=== PATIENT | male | born 1975 | race Caucasian/White ===

== ENCOUNTER 2018-04-12 10:42 | Emergency (ER) | payer BC ==
--- NOTE | 2018-04-12 11:20 | EDM.PDOC ---
ED HPI GENERAL MEDICAL PROBLEM - General Chief Complaint: Chest Pain Stated Complaint: CHEST PAIN Time Seen by Provider: 04/12/18 10:44 Source of Information: Reports: Patient History Limitations: Reports: No Limitations - History of Present Illness INITIAL COMMENTS - FREE TEXT/NARRATIVE: 42-year-old male history of hypertension presenting with a chief complaint of chest pain. Patient states that on Tuesday while driving he had very brief episodes of left-sided sharp chest pain that was nonpleuritic in nature. Patient denies any associated cough. Patient states that his father had angioplasty performed he thinks in his late 40s or early 50s. Patient has no history of MO or ACS himself. Patient takes lisinopril 20 mg for high blood pressure. He purchased a home blood pressure monitor recently been checking it has been as high as 180/105. During these episodes patient has been asymptomatic. Patient can't describe any palliating or provoking factors. He's tried nothing at home to the pain. Describes it as general funny feeling on the left side of his chest mild pain 1 out of 10 associated with some radiation to his left arm. No associated shortness of breath. Patient did recently fly out here 1 week ago has had no unilateral leg swelling. No history of DVT or PE no history of cancer. Patient denies any associated shortness of breath with chest pain. He primarily present today because of the intermittent. Nature of the pain he's had since Tuesday. Of note the patient did have similar episodes of pain when he is approximately 36 years old and had an exercise stress test which he was told was normal. This was done back in [place]. Onset: Other Onset Date: 04/09/18 Duration: Intermittent Location: Reports: Chest Quality: Reports: Sharp Severity: Mild Improves with: Reports: None Worsens with: Reports: None Associated Symptoms: Reports: Cough Chest Pain Score (Numeric/FACES): 2 - Related Data Allergies Allergy/AdvReac Type Severity Reaction Status Date / Time No Known Allergies Allergy Verified 04/12/18 12:35 Home Meds: Home Meds Lisinopril 20 mg PO DAILY 04/12/18 [History] Past Medical History Cardiovascular History: Reports: Hypertension - Past Surgical History GI Surgical History: Reports: Cholecystectomy Social & Family History - Family History Cardiac: Reports: Hypertension, Stent - Tobacco Use Smoking Status *Q: Never Smoker - Caffeine Use Caffeine Use: Reports: Soda, Tea Other Caffeine Use: soda rarely - Recreational Drug Use Recreational Drug Use: No ED ROS GENERAL - Review of Systems Review Of Systems: See Below Constitutional: Reports: No Symptoms HEENT: Reports: No Symptoms Respiratory: Reports: Cough Cardiovascular: Reports: Chest Pain (Left-sided intermittent) Endocrine: Reports: No Symptoms GI/Abdominal: Reports: No Symptoms : Reports: No Symptoms Musculoskeletal: Reports: No Symptoms Skin: Reports: No Symptoms Neurological: Reports: No Symptoms Psychiatric: Reports: No Symptoms Hematologic/Lymphatic: Reports: No Symptoms Immunologic: Reports: No Symptoms ED EXAM, GENERAL - Physical Exam Exam: See Below Exam Limited By: No Limitations General Appearance: Alert, No Apparent Distress Nose: No Blood Throat/Mouth: No Airway Compromise Head: Atraumatic, Normocephalic Neck: Normal Inspection, Full Range of Motion Respiratory/Chest: No Respiratory Distress, Lungs Clear, Normal Breath Sounds, No Accessory Muscle Use, Chest Non-Tender Cardiovascular: Normal Peripheral Pulses, Regular Rate, Rhythm, No Edema, No Gallop, No JVD, No Murmur, No Rub GI/Abdominal: Soft, Non-Tender, No Distention Extremities: Normal Inspection, Normal Range of Motion, No Pedal Edema Neurological: Alert, Oriented, CN II-XII Intact, No Motor/Sensory Deficits Psychiatric: Normal Affect, Normal Mood Skin Exam: Warm, Dry, Intact EKG INTERPRETATION EKG Date: 04/12/18 Time: 10:49 Rhythm: NSR Rate (Beats/Min): 59 [place]: Normal P-Wave: Present QRS: Normal ST-T: Normal QT: Normal ME/PQ Interval: 134 Comparison: NA - No Prior EKG EKG Interpretation Comments: EKG is normal sinus rhythm with a ventricular rate of 59. No ST or T-wave abnormalities isindicative of ischemia. Course - Vital Signs Last Recorded V/S: Last Vital Signs Temp 37.2 C 04/12/18 10:54 Pulse 61 04/12/18 10:54 Resp 18 04/12/18 10:54 BP 166/96 H 04/12/18 10:54 Pulse Ox 100 04/12/18 10:54 - Orders/Labs/Meds Orders: Active Orders 24 hr Category Date Time Status Cardiac Monitoring [RC] . DIRECTED Care 04/12/18 11:14 Active CXR [Chest 1V Frontal] [CR] Stat Exams 04/12/18 11:15 Taken Labs: Laboratory Tests 04/12/18 04/12/18 Range/Units 10:55 10:55 WBC 6.98 (4.23-9.07) K/mm3 RBC 5.94 (4.63-6.08) M/mm3 Hgb 17.2 (13.7-17.5) gm/L Hct 48.7 (40.1-51.0) % MCV 82.0 (79.0-92.2) fl MCH 29.0 (25.7-32.2) pg MCHC 35.3 (32.2-35.5) g/dl RDW Std Deviation 39.0 (35.1-43.9) fL Plt Count 257 (163-337) K/mm3 MPV 10.2 (9.4-12.3) fl Neut % (Auto) 50.9 (34.0-67.9) % Lymph % (Auto) 39.0 (21.8-53.1) % Jenkins % (Auto) 7.3 (5.3-12.2) % Eos % (Auto) 2.1 (0.8-7.0) Baso % (Auto) 0.4 (0.1-1.2) % Neut # (Auto) 3.55 (1.78-5.38) K/mm3 Lymph # (Auto) 2.72 (1.32-3.57) K/mm3 Jenkins # (Auto) 0.51 (0.30-0.82) K/mm3 Eos # (Auto) 0.15 (0.04-0.54) K/mm3 Baso # (Auto) 0.03 (0.01-0.08) K/mm3 Sodium 138 (136-145) mEq/L Potassium 4.1 (3.5-5.1) mEq/L Chloride 103 (98-107) mEq/L Carbon Dioxide 28 (21-32) mEq/L Anion Gap 11.1 (5-15) BUN 13 (7-18) mg/dL Creatinine 1.1 (0.7-1.3) mg/dL Est Cr Clr Drug Dosing 86.36 mL/min Estimated GFR (MDRD) > 60 (>60) mL/min BUN/Creatinine Ratio 11.8 L (14-18) Glucose 94 (74-106) mg/dL Calcium 9.3 (8.5-10.1) mg/dL Total Bilirubin 1.0 (0.2-1.0) mg/dL AST 133 H (15-37) U/L ALT 296 H (16-63) U/L Alkaline Phosphatase 84 (46-116) U/L CK-MB (CK-2) < 0.5 (0-3.6) ng/ml Troponin I < 0.017 (0.00-0.056) ng/mL Total Protein 8.1 (6.4-8.2) g/dl Albumin 4.5 (3.4-5.0) g/dl Globulin 3.6 gm/dL Albumin/Globulin Ratio 1.3 (1-2) - Re-Assessments/Exams Free Text/Narrative Re-Assessment/Exam: 04/12/18 23:40 Pleurisy, costochondritis, highly unlikely pulmonary embolism or ACS Patient is a 42-year-old male presenting with a chief complaint of chest pain. Upon initial evaluation patient was noted to be hypertensive but not in the emergency range. On my initial physical exam patient appeared to be in no apparent physical distress. Heart and lung exams are normal. Patient also has heart failure. EKG read my interpretation was not concerning for acute ischemia. CBC, CMP were normal. Given the time course of this pain I felt that one troponin was sufficient to rule out ACS in this low risk individual. The patient does have a low HEART score. Troponin was negative 1. Chest x-ray was unremarkable interpretation. I discussed the results of all the diagnostic testing with the patient. He is reassured. Patient plans to fly back home in a week to [place] where he has plans to have an appointment with his primary care physician for referral to a surfboard designer. Patient seems to be preoccupied with his family history of cardiac disease. Of note I have extremely low suspicion for pulmonary embolus in this patient. He is PERC negative. The patient was discharged home in good condition and given return precautions for new or worsening chest pain, SOB, dizziness or palpitations. Patient states understanding of above and all questions answered. Departure - Departure Time of Disposition: 12:00 Disposition: Home, Self-Care 01 Condition: Good Clinical Impression: Nonspecific chest pain Instructions: Nonspecific Chest Pain, [facility] Referrals: PCP,Not In Area [Primary Care Provider] - Forms: ED Department Discharge Additional Instructions: Evaluation in the emergency department today reveals no evidence of cardiac etiology for her chest pain. When he returned home to [place] follow-up with your primary care physician for possible referral to a surfboard designer. If at anytime if new or worsening chest pain shortness of breath dizziness or lightheadedness please return to the nearest emergency department. - Problem List & Annotations (1) Nonspecific chest pain SNOMED Code(s): 23638354 Code(s): R07.9 - CHEST PAIN, UNSPECIFIED Status: Acute - My Orders Last 24 Hours: My Active Orders 04/12/18 11:14 Cardiac Monitoring [RC] . DIRECTED 04/12/18 11:15 CXR [Chest 1V Frontal] [CR] Stat - Assessment/Plan Last 24 Hours: My Active Orders 04/12/18 11:14 Cardiac Monitoring [RC] . DIRECTED 04/12/18 11:15 CXR [Chest 1V Frontal] [CR] Stat Plan: Pleurisy, costochondritis, highly unlikely pulmonary embolism or ACS Patient is a 42-year-old male presenting with a chief complaint of chest pain. Upon initial evaluation patient was noted to be hypertensive but not in the emergency range. On my initial physical exam patient appeared to be in no apparent physical distress. Heart and lung exams are normal. Patient also has heart failure. EKG read my interpretation was not concerning for acute ischemia. CBC, CMP were normal. Given the time course of this pain I felt that one troponin was sufficient to rule out ACS in this low risk individual. The patient does have a low HEART score. Troponin was negative 1. Chest x-ray was unremarkable interpretation. I discussed the results of all the diagnostic testing with the patient. He is reassured. Patient plans to fly back home in a week to [place] where he has plans to have an appointment with his primary care physician for referral to a surfboard designer. Patient seems to be preoccupied with his family history of cardiac disease. Of note I have extremely low suspicion for pulmonary embolus in this patient. He is PERC negative. The patient was discharged home in good condition and given return precautions for new or worsening chest pain, SOB, dizziness or palpitations. Patient states understanding of above and all questions answered.
== END 2018-04-12 12:15 | disposition home or self-care (01) ==
LOC: JD.ED 10:42
DX: R07.9 Chest pain, unspecified (principal); I10 Essential (primary) hypertension; Z79.899 Other long term (current) drug therapy
CPT/HCPCS: 36415; 71045; 80053; 82553; 84484; 85025; 93010; 99284-25; 99285